=== PATIENT | male | born 1950 | race Caucasian/White ===

== ENCOUNTER 2018-03-07 11:56 | Day surgery (SDC) | payer OTHER ==
[2018-03-02 15:18] VITALS: BMI 26.6
[~2018-03-07 11:56] MED LIST: LACTATED RINGERS 1,000 ML IV SCH; LIDOCAINE 1% 20 ML VIAL (10MG/ML) FOR IV START INTRADERMA PRN
[2018-03-07 12:16] VITALS: TEMP 98.2
[2018-03-07] MEDS ORDERED: PROPOFOL 10 MG/ML 20 ML VIAL IV ONE (12:54)
[2018-03-07 13:30] VITALS: RESP 16
[2018-03-07 13:49] VITALS: BP 135/84; PULSE 61
--- NOTE | 2018-03-07 14:10 | P.PCN ---
Date of Procedure: 03/07/18 Procedure(s) Performed: Procedure: Colonoscopy and biopsy. Preoperative diagnosis: Screening for neoplasia. Postoperative diagnosis: 1. Less than ideal preparation of the bowel with no evidence of diverticulosis. 2. 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 3. Multiple biopsies obtained. 4. Splenic flexure polyp biopsied. 5. Other smaller polyps encountered in the right colon and transverse colon were not addressed because of the poor preparation. Preparation: HalfLytely prep. Sedation: Was provided by anesthesia. Brief clinical history: The patient is a 67-year-old male who is scheduled for this evaluation for screening for neoplasia. The patient had prior screening with occult stool tests for blood which were negative. He had no abdominal complaints or overt bleeding or anemia. Procedure: With the patient on his left lateral decubitus position and after informed consent and adequate sedation, the perianal area was inspected and it did not show any fissures or fistulas. There were no masses felt on digital rectal examination. The Olympus CFH 190L video colonoscope was then inserted in the rectum in the usual fashion and advanced to the cecum. The preparation was less than ideal and in some areas it was poor. In the cecum, and contiguous with the IC valve area, there was a flat spread out lesion probably representing tubulovillous adenoma but biopsies were obtained to rule out cancer. Around the splenic flexure there was a 2-3 cm polyp which I biopsied and in the transverse colon and right colon there were occasional polyps which were small to medium in size that I did not address today because of the poor preparation in those areas. I retroflexed the endoscope in the rectum before the endoscope was withdrawn. The patient tolerated the procedure well. Plan: I summarized the findings to the patient. I will await biopsy results and make additional recommendations. I will keep you updated on his progress.
== END 2018-03-07 14:04 | disposition home or self-care (01) ==
LOC: ORWHC2ENDO 11:56
DX: Z12.11 Encounter for screening for malignant neoplasm of colon (principal); D12.3 Benign neoplasm of transverse colon; D12.0 Benign neoplasm of cecum; K63.5 Polyp of colon; Z88.2 Allergy status to sulfonamides; Z72.0 Tobacco use
CPT/HCPCS: 88305; 45380; J2704

== ENCOUNTER 2022-04-09 12:39 | Day surgery (SDC) | payer OTHER ==
[2022-04-07 10:34] VITALS: BMI 25.8
[~2022-04-09 12:39] MED LIST changes: -LIDOCAINE 1% 20 ML VIAL (10MG/ML) FOR IV START INTRADERMA PRN
[2022-04-09 13:59] VITALS: RESP 16; TEMP 97.7
[2022-04-09] MEDS ORDERED: PROPOFOL 10 MG/ML 20 ML VIAL IV ONE (15:38)
--- NOTE | 2022-04-09 16:02 | P.PCN ---
Date of Procedure: 04/09/22 Procedure(s) Performed: BRIEF HISTORY: Patient is a 71-year-old pleasant male scheduled for an elective colonoscopy as a part of evaluation of prior history of colon polyps. His last colonoscopy was done by Dr. Magallanes in 2018 and was noted to have flat polyp in the cecum and biopsies revealed tubular villous adenoma. PROCEDURE PERFORMED: Colonoscopy with biopsy, snare polypectomy, tattooing with Julita ink. PREOPERATIVE DIAGNOSIS: History of colon polyps. IV sedation per Anesthesia. PROCEDURE: After informed consent was obtained, the patient, was brought into the endoscopy unit. IV sedation was administered by Anesthesia under continuous monitoring. Digital rectal examination was normal. Initially the Olympus CF-160 flexible video colonoscope was then inserted in the rectum, gradually advanced into the cecum without any difficulty. Careful examination was performed as the scope was gradually being withdrawn. Ileocecal valve and the appendiceal orifice were visualized and appeared normal. Prep was excellent. Mucosa of the cecum, up in normal. On the ileocecal valve extending into part of the cecum there was a 3-4 cm broad-based polyp that was not removed . In the hepatic flexure there was a circumferential ulcerated mass identified and multiple biopsies were done from this area followed by tattooing with Julita ink.. In the transverse colon there were 2 polyps measuring 5 mm and 1 cm in size removed by snare polypectomy. In the descending colon there was a 2 cm polyp removed by snare polypectomy. In the sigmoid colon there was a 1 cm polyp removed by snare polypectomy. Moderate sigmoid diverticulosis seen. The rectum appeared normal. Retroflexion was performed in the rectum and no lesions were seen. The patient tolerated the procedure well. IMPRESSION: Circumferential ulcerated hepatic flexure polyp status post multiple biopsies followed by Large 3-4 cm broad-based cecal polyp involving the ileocecal valve which was not removed 1 cm 2 transverse colon polyp status post polypectomy 2 cm descending colon polyp status post polypectomy 1 cm sigmoid colon polyp status post polypectomy Scattered left-sided diverticulosis RECOMMENDATIONS: Findings of this examination were discussed with the patient as well as his family. He was advised to follow with the biopsy results. He'll be scheduled for a CT of the abdomen and pelvis and he'll be seen in office in one week..
[2022-04-09 16:23] VITALS: BP 156/85; PULSE 70
== END 2022-04-09 16:39 | disposition home or self-care (01) ==
LOC: ORWHC2ENDO 12:39
PROVIDERS: ATTEND Internal Medicine Gastroenterology
DX: Z12.11 Encounter for screening for malignant neoplasm of colon (principal); D12.4 Benign neoplasm of descending colon; D12.3 Benign neoplasm of transverse colon; K57.30 Diverticulosis of large intestine without perforation or abscess without bleeding; I10 Essential (primary) hypertension; F17.200 Nicotine dependence, unspecified, uncomplicated; F41.8 Other specified anxiety disorders; M19.90 Unspecified osteoarthritis, unspecified site; Z88.2 Allergy status to sulfonamides; Z79.899 Other long term (current) drug therapy; Z90.89 Acquired absence of other organs; Z98.890 Other specified postprocedural states; Z86.010 Personal history of colon polyps
CPT/HCPCS: 45385; 45380; 45381; 88305; J2704

== ENCOUNTER → 2022-04-13 | Outpatient (CLI) | payer OTHER ==
[2022-04-13 17:29] LABS: African American GFR (CKD) >90 (>60 ml/min/1.73 sqM); Blood Urea Nitrogen 11 mg/dL (9-20); Non-African American GFR(CKD) >90 (>60 ml/min/1.73 sqM)
--- NOTE | 2022-04-13 19:20 | CT ---
EXAMINATION TYPE: CT abdomen pelvis w con CT DLP: 578 mGycm, Automated exposure control for dose reduction was used. DATE OF EXAM: 04/13/2022 6:45 PM COMPARISON: None CLINICAL INDICATION:Male, 71 years old with history of C18.9; new dx of colon ca TECHNIQUE: Axial CT of the abdomen and pelvis. Sagittal and coronal reformats were created on a [employer] workstation. Contrast used:100 mL of Isovue 300 with IV Contrast, Oral contrast used: with Oral Contrast FINDINGS: LOWER CHEST: Unremarkable ABDOMEN LIVER: Scattered subcentimeter low density areas are seen within the dome of the liver example includ es series 3 image 12 and, image 13. GALLBLADDER AND BILE DUCTS: Unremarkable. PANCREAS: Unremarkable. SPLEEN: Unremarkable. ADRENAL GLANDS: Unremarkable. KIDNEYS AND URETERS: No evidence of hydronephrosis or renal calculus. The ureters are unremarkable. PELVIS BLADDER: Unremarkable REPRODUCTIVE: Prostate is enlarged in size measuring 5.4 cm in transverse dimension. ABDOMEN & PELVIS STOMACH AND BOWEL: No evidence of bowel obstruction. There is circumferential wall thickening of the ascending colon measuring up to 13 mm with apple core lesion. There is mild fatty changes around the wall thickening which could represent infiltration. No enlarged lymph nodes within the visualized. Sc attered clonic diverticula most pronounced in the sigmoid colon. PERITONEUM/RETROPERITONEUM: No evidence of pneumoperitoneum or free fluid. . VASCULATURE: No evidence of aortic aneurysm. , This course of the arterial vasculature. MUSCULOSKELETAL: No acute osseous abnormalities LYMPH NODES: No gross evidence for lymphadenopathy. SOFT TISSUE/ABDOMINAL WALL: Unremarkable IMPRESSION: 1. Ascending colonic upper core lesion consistent with malignancy prior with history. No adjacent en larged lymph nodes, however there is some ill-defined fat stranding around this area/malignancy which could represent microscopic infiltration into the surrounding fat. 2. Scattered low-density areas within the liver could relate to cysts however malignancy is not enti rely excluded. Correlation with prior CT imaging would be of benefit for chronicity of the hepatic le sions. 3. Prostatomegaly correlate with serum PSA. 4. Colonic diverticulosis.
== END | disposition home or self-care (01) ==
LOC: RADCTMAIN 16:25
PROVIDERS: ATTEND Internal Medicine Gastroenterology
DX: C18.2 Malignant neoplasm of ascending colon (principal); N40.0 Benign prostatic hyperplasia without lower urinary tract symptoms; K57.30 Diverticulosis of large intestine without perforation or abscess without bleeding; K76.89 Other specified diseases of liver
CPT/HCPCS: 82565; 84520; 74177; 36415; Q9967

== ENCOUNTER → 2022-07-07 | Outpatient (CLI) | payer OTHER ==
[2022-07-07 14:29] LABS: African American GFR (CKD) >90 (>60 ml/min/1.73 sqM); Blood Urea Nitrogen 12 mg/dL (9-20); Non-African American GFR(CKD) >90 (>60 ml/min/1.73 sqM)
--- NOTE | 2022-07-07 15:13 | CT ---
EXAMINATION TYPE: CT chest w con CT DLP: 265.8 mGycm, Automated exposure control for dose reduction was used. DATE OF EXAM: 07/07/2022 2:45 PM COMPARISON: MR liver 05/10/2022, 05/07/2022, CT abdomen pelvis 04/13/2022. 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 TECHNIQUE: Multiple axial images were obtained through the chest following the administration of 100 cc of Isovue 300. FINDINGS: LUNGS/ PLEURA: Mild paraseptal and centrilobular emphysematous changes. No pleural effusion, pneumoth orax, focal consolidation. No suspicious nodules or mass. AIRWAY: Patent and unremarkable.. HEART: Size within normal limits. No pericardial effusion. Mild coronary artery calcifications. MEDIASTINUM: No evidence of adenopathy. VASCULATURE: No aortic aneurysm. Mild vascular calcification of the aorta. Reflux of contrast in the IVC suggesting right heart dysfunction. MUSCULOSKELETAL: Mild disc degeneration changes are present throughout the thoracolumbar spine. No ag gressive osseous lesion. No acute osseous abnormality. SOFT TISSUES/LYMPH NODES: Bilateral gynecomastia. LOWER NECK: No significant findings. UPPER ABDOMEN: The previously seen scattered subcentimeter hypodense regions within the liver are bet ter appreciated on prior CT. IMPRESSION: 1. No acute thoracic process or evidence for metastatic disease within the chest. 2. Mild COPD changes.
== END | disposition home or self-care (01) ==
LOC: RADCTMAIN 13:47
PROVIDERS: ATTEND Internal Medicine
DX: Z03.89 Encounter for observation for other suspected diseases and conditions ruled out (principal); C18.3 Malignant neoplasm of hepatic flexure; J44.9 Chronic obstructive pulmonary disease, unspecified
CPT/HCPCS: 82565; 84520; 71260; 36415; Q9967

== ENCOUNTER 2022-07-15 11:31 | Day surgery (SDC) | payer OTHER ==
[~2022-07-15 11:31] MED LIST changes: +ACETAMINOPHEN TAB 500 MG TAB PO PRN; +HEPARIN SODIUM,PORCINE/PF 5,000 UNIT/0.5 ML SYRINGE SQ PRN; +Pre Op ABX Message 1 EACH MISC MISCELLANE ONE
[2022-07-15] MEDS ORDERED: ONDANSETRON 4 MG/2 ML VIAL ONE (12:20)
[2022-07-15] MEDS ORDERED: DEXAMETHASONE SOD PHOSPHATE 4 MG/ML 1 ML VIAL IVP ONE (12:22)
[2022-07-15] MEDS ORDERED: ONDANSETRON 4 MG/2 ML VIAL IVP ONE (12:22)
[2022-07-15] MEDS ORDERED: GLYCOPYRROLATE 0.2 MG/ML 2 ML VIAL ONE (13:43)
[2022-07-15] MEDS ORDERED: LIDOCAINE 2% INJ 20 MG/ML (2 ML VIAL) ONE (13:43)
[2022-07-15] MEDS ORDERED: fentaNYL (PF) 50 MCG/ML 2 ML AMP ONE (13:43)
[2022-07-15] MEDS ORDERED: PROPOFOL 10 MG/ML 20 ML VIAL IV ONE (13:43)
[2022-07-15] MEDS ORDERED: MIDAZOLAM 2 MG/2 ML VIAL ONE (13:43)
[2022-07-15] MEDS ORDERED: ePHEDrine 50 MG/ML 1 ML VIAL ONE (13:43)
[2022-07-15] MEDS ORDERED: HEPARIN SODIUM,PORCINE 100 UNIT/ML 5 ML VIAL IV ONE ×2 (14:12)
[2022-07-15] MEDS ORDERED: SODIUM CHLORIDE 0.9% 50 ML with ceFAZolin 2,000 MG IV ONE ×2 (14:13)
[2022-07-15] MEDS ORDERED: LIDOCAINE (PF) 10 MG/ML 2 ML VIAL SQ ONE ×2 (14:13)
[2022-07-15] MEDS ORDERED: LACTATED RINGERS 1,000 ML IV ONE (14:21)
[2022-07-15 14:45] VITALS: RESP 16; TEMP 97
[2022-07-15] MEDS ORDERED: NALOXONE 0.4 MG/ML 1 ML VIAL IV PRN (14:48)
[2022-07-15] MEDS ORDERED: HYDROcodone/APAP 5-325MG 1 EACH TAB PO PRN (14:48)
--- NOTE | 2022-07-15 14:52 | FL ---
EXAMINATION TYPE: FL guided central line placemt HISTORY: Fluoroscopy time Impression: 1. Fluoroscopy support provided to the referring physician. DAP 54.37cGy cm. CY
[2022-07-15] MEDS ORDERED: hydrALAZINE HCL 20 MG/ML 1 ML VIAL IVP ONE (15:24)
--- NOTE | 2022-07-15 15:26 | P.OP ---
Date of Procedure: 07/15/22 Procedure(s) Performed: PREOPERATIVE DIAGNOSIS: Colon cancer POSTOPERATIVE DIAGNOSIS: Same PROCEDURE: Port-A-Cath placement with fluoroscopic and ultrasound guidance SURGEON: Lakshmi EBL: Minimal ANESTHESIA: Sedation COMPLICATIONS: None OPERATIVE PROCEDURE: Patient was brought and placed on the operative table in the supine position. The patient was sedated per anesthesia that time. The chest and neck were prepped and draped in usual sterile fashion. The ultrasound probe was used to identify the location of the right internal jugular vein. The skin was localized with lidocaine. The Seldinger needle was advanced into the IJ under ultrasound guidance. The wire was advanced through the needle under fluoroscopic guidance into the superior vena cava. A port pocket was created in the right infraclavicular location. The catheter was tunneled from the wire entrance site to the port pocket. The port was then connected to the catheter. The dilator introducer was threaded over the guidewire. The guidewire and dilator were then removed. The catheter was advanced through the introducer and introducer was then removed. The tip was seen to be in the right atrial junction via fluoroscopy. A picture of the radiograph showing the tip at the radial digital junction was taken. Port was flushed with both saline and a Hep- Lock solution. There was good flow both in and out of the port. The port was sutured in underlying tissues using 3-0 silk sutures. The subcutaneous tissues were reapproximated using 3-0 Vicryl sutures and the skin at both locations using 4-0 Monocryl sutures. Skin glue and sterile dressings then applied. DISPOSITION: Stable to recovery room
--- NOTE | 2022-07-15 15:35 | XR ---
EXAMINATION TYPE: XR chest 1V portable DATE OF EXAM: 07/15/2022 Comparison: Correlation CT 07/07/2022 Clinical History: 71-year-old male Mediport insertion Findings: Heart normal size. Right anterior chest wall injection port. Catheter tip at the mid SVC. Prominent b carson hyperostosis at the right costovertebral joint of the sixth rib causing a lower right paratrachea l density. No appreciable pneumothorax. No consolidation or pleural effusion. Impression: COPD. Right anterior chest wall injection port with catheter tip at the mid SVC. No acute process see n.
[2022-07-15 16:47] VITALS: BP 192/78; PULSE 90
== END 2022-07-15 16:50 | disposition home or self-care (01) ==
LOC: OR 11:31
PROVIDERS: ATTEND Surgery
DX: C18.9 Malignant neoplasm of colon, unspecified (principal); F17.210 Nicotine dependence, cigarettes, uncomplicated; I10 Essential (primary) hypertension; F41.9 Anxiety disorder, unspecified; F32.A Depression, unspecified; Z88.5 Allergy status to narcotic agent; Z79.899 Other long term (current) drug therapy
CPT/HCPCS: 77001; 71045; 36561; C1788; J2250; J0360; J2001 ×2; J1642; J1100; J2405; J0690; J3010; J2704; J1644

== ENCOUNTER → 2023-02-11 | Outpatient (CLI) | payer OTHER ==
[2023-02-11 10:27] LABS: African American GFR (CKD) >90 (>60 ml/min/1.73 sqM); Blood Urea Nitrogen 10 mg/dL (9-20); Non-African American GFR(CKD) >90 (>60 ml/min/1.73 sqM)
--- NOTE | 2023-02-11 13:18 | CT ---
EXAMINATION TYPE: CT ChestAbdPelvis w con DATE OF EXAM: 02/11/2023 COMPARISON: Chest 07/07/2022 and 04/13/2022 abdomen and pelvis HISTORY: 72-year-old male C18.3 Carcinoma of colon, hepatic flexure cancer. TECHNIQUE: Contiguous axial scanning of the chest, abdomen, and pelvis performed with IV Contrast, pa tient injected with 100 mL of Isovue 300. Delayed images through the kidneys were obtained. Coronal/s agittal reconstructions performed. CT DLP: 788.60 mGycm Automated exposure control for dose reduction was used. FINDINGS: CHEST: Heart is normal size without pericardial effusion. Scattered three-vessel coronary artery calcificati ons are present. Aorta normal caliber with a bovine configuration to the aortic arch and scattered mild atheroscleroti c calcifications. Borderline caliber to the main right and left pulmonary arteries up to 2.6 cm may reflect underlying pulmonary hypertension. No thoracic lymphadenopathy by CT size criteria. Right anterior chest wall injection port with cathet er tip at the mid SVC. Mild bilateral gynecomastia. There is mild to moderate emphysematous change. Mild diffuse bronchial wall thickening. No consolidat ion or pleural effusion. Trace biapical pleural parenchymal scarring. ABDOMEN: Scattered punctate hepatic cysts redemonstrated. No suspicious enhancing hepatic lesion clearly ident ified. No biliary ductal dilatation. Portal venous system is patent. Gallbladder, adrenal glands, kidneys, spleen, and pancreas within normal limits. Moderate atherosclerotic calcifications infrarenal abdominal aorta and iliac arteries. No dilated small bowel, free fluid, or free air. No mesenteric or retroperitoneal lymphadenopathy. Postsurgical change of partial right hemicolectomy with ileocolonic anastomosis at the hepatic flexur e of the colon. Left-sided colonic diverticulosis, extensive in the sigmoid colon. No pericolonic inf lammatory change. PELVIS: Mild circumferential bladder wall thickening. Prostate gland enlargement 6.2 cm wide. No abnormal flu id collection the pelvis or pelvic lymphadenopathy. BONES: Mild degenerative change at the hips. Moderate degenerative disc disease L5-S1 and L2-L3. Patient wit hin the lower thoracic spine. No osseous destructive process seen. IMPRESSION: 1. STATUS POST PARTIAL RIGHT HEMICOLECTOMY. NO EVIDENCE FOR RESIDUAL OR RECURRENT/METASTATIC DISEASE. 2. REDEMONSTRATED A FEW PUNCTATE HEPATIC HYPODENSITIES/CYSTS. 3. LEFT-SIDED COLONIC DIVERTICULOSIS, EXTENSIVE IN THE SIGMOID COLON. 4. COPD WITH MILD TO MODERATE EMPHYSEMA AND POSSIBLE PULMONARY ARTERIAL HYPERTENSION. 5. PROSTATOMEGALY AT 6.2 CM WIDE.
== END | disposition home or self-care (01) ==
LOC: RADCTMAIN 09:10
PROVIDERS: ATTEND Internal Medicine
DX: C18.3 Malignant neoplasm of hepatic flexure (principal); I10 Essential (primary) hypertension; M12.9 Arthropathy, unspecified; K57.30 Diverticulosis of large intestine without perforation or abscess without bleeding; N40.0 Benign prostatic hyperplasia without lower urinary tract symptoms; J43.9 Emphysema, unspecified; J44.9 Chronic obstructive pulmonary disease, unspecified; Z98.890 Other specified postprocedural states
CPT/HCPCS: 82565; 84520; 71260; 74177; 36415; Q9967

== ENCOUNTER 2023-06-17 10:39 | Day surgery (SDC) | payer OTHER ==
[2023-06-17] MEDS: LACTATED RINGERS 1,000 ML IV SCH (12:28)
[2023-06-17 12:53] VITALS: TEMP 98.9
[2023-06-17] MEDS ORDERED: PROPOFOL 10 MG/ML 20 ML VIAL IV ONE (14:19)
--- NOTE | 2023-06-17 14:36 | P.PCN ---
Date of Procedure: 06/17/23 Procedure(s) Performed: BRIEF HISTORY: Patient is a [72-year-old pleasant white male scheduled for an elective colonoscopy as a part of surveillance of prior history of colon cancer diagnosed in March 2022. He was noted to have a hepatic flexure adenocarcinoma for which she underwent right hemicolectomy. He is scheduled for a surveillance colonoscopy today. PROCEDURE PERFORMED: Colonoscopy with biopsy. PREOPERATIVE DIAGNOSIS: History of colon cancer diagnosed in March 2022 status post right hemicolectomy. IV sedation per Anesthesia. PROCEDURE: After informed consent was obtained, the patient, was brought into the endoscopy unit. IV sedation was administered by Anesthesia under continuous monitoring. Digital rectal examination was normal. Initially the Olympus CF-160 flexible video colonoscope was then inserted in the rectum, gradually advanced into the right colon where the ileocolonic anastomosis was visualized and appeared normal. Mucosa of the, transverse colon, descending colon, sigmoid colon, and rectum appeared normal. in the mid rectum there was a former limited polyp that was removed by cold biopsy. Moderate sigmoid diverticula seen. Retroflexion was performed in the rectum and no lesions were seen. The patient tolerated the procedure well. IMPRESSION: 4 mm proximal rectal polyp status post cold biopsy Moderate sigmoid diverticulosis Normal right-sided ileocolic anastomosis RECOMMENDATIONS: Findings of this examination were discussed with the patient as well as his family. He was advised to follow with the biopsy results and have a repeat surveillance colonoscopy in 3 years..
[2023-06-17] MEDS: hydrALAZINE HCL 20 MG/ML 1 ML VIAL ONE (15:14)
[2023-06-17 15:19] VITALS: RESP 16
[2023-06-17 16:29] VITALS: BP 185/75; PULSE 73
== END 2023-06-17 16:12 | disposition home or self-care (01) ==
LOC: ORWHC2ENDO 10:39
PROVIDERS: ATTEND Internal Medicine Gastroenterology
DX: Z12.11 Encounter for screening for malignant neoplasm of colon (principal); I10 Essential (primary) hypertension; K57.30 Diverticulosis of large intestine without perforation or abscess without bleeding; F41.9 Anxiety disorder, unspecified; F32.A Depression, unspecified; Z85.038 Personal history of other malignant neoplasm of large intestine; Z90.49 Acquired absence of other specified parts of digestive tract; Z79.899 Other long term (current) drug therapy; Z88.2 Allergy status to sulfonamides; Z79.85 Long-term (current) use of injectable non-insulin antidiabetic drugs
CPT/HCPCS: 45380; J0360; J2704; 88305

== ENCOUNTER → 2023-12-16 | Outpatient (CLI) | payer OTHER ==
[2023-12-16 13:54] LABS: African American GFR (CKD) >90 (>60 ml/min/1.73 sqM); Blood Urea Nitrogen 14 mg/dL (9-20); Non-African American GFR(CKD) 87 (>60 ml/min/1.73 sqM)
--- NOTE | 2023-12-16 15:27 | CT ---
EXAMINATION TYPE: CT ChestAbdPelvis w con DATE OF EXAM: 12/16/2023 COMPARISON: 02/11/2023 HISTORY: Malignant neoplasm of hepatic flexure. CT DLP: 1557 mGycm Automated exposure control for dose reduction was used. CONTRAST: CT scan of the chest, abdomen and pelvis is performed with Oral Contrast and with IV Contrast, patien t injected with 100ml mL of Isovue 300. FINDINGS: CT chest: There are mild emphysematous changes. There is no suspicious lung mass or nodule. There is no abnormal airspace/consolidative density or abnormal interstitial density. There is no pleural effusion, pleural thickening or pneumothorax. The great vessels and chest are normal there is no mediastinal, hilar or axillary adenopathy. No focal osseous lesions are seen. CT abdomen and pelvis: Gallbladder is normal without distention, pericholecystic fluid, wall thickening or gallstone. There is no biliary ductal dilatation. There are multiple stable tiny hypodensities scattered throughout the liver too small to characterize with certainty. There is no mass the pancreas, spleen or adrenal glands. There is no solid renal mass or hydronephrosis. There is no retroperitoneal adenopathy or hemorrhage in the caliber of the abdominal aorta is normal. The bowel loops are normal in caliber and there is no dilatation or obstruction. There is a right hem icolectomy. Anastomotic sutures are seen within the hepatic flexure. There is no recurrent mass. No i nflammatory changes identified in the bowel wall and mesentery. There is no free intracranial air or fluid. There is no pelvic mass or adenopathy. There is no free fluid within the pelvis. There is stable pros tatic marked prostatic enlargement No focal osseous lesions are seen. Soft tissue the abdomen and pelvis are normal. IMPRESSION: 1. Postsurgical changes of right hemicolectomy with no recurrent neoplasm or metastatic disease withi n the chest, abdomen or pelvis. 2. Multiple tiny hypodensities within the liver too small to characterize with certainty but unchange d compared to the study of 02/11/2023. 3. Marked prostatic hypertrophy [facility], , 12/16/2023 3:25 PM
== END | disposition home or self-care (01) ==
LOC: RADCTMAIN 13:06
PROVIDERS: ATTEND Internal Medicine
DX: C18.3 Malignant neoplasm of hepatic flexure
CPT/HCPCS: 36415; 71260; 74177; 82565; 84520

== ENCOUNTER → 2024-04-20 | Outpatient (CLI) | payer OTHER ==
[2024-04-20 13:49] LABS: African American GFR (CKD) >90 (>60 ml/min/1.73 sqM); Blood Urea Nitrogen 16 mg/dL (9-20); Non-African American GFR(CKD) 87 (>60 ml/min/1.73 sqM)
--- NOTE | 2024-04-20 14:46 | CT ---
EXAMINATION TYPE: CT ChestAbdPelvis w con DATE OF EXAM: 04/20/2024 2:36 PM COMPARISON: None. CLINICAL INDICATION: Male, 73 years old with history of C18.3 COLON CANCER, Colon ca TECHNIQUE: CT ChestAbdPelvis w con , with sagittal coronal reformats. If MIP/3-D images were created, there are created on a separate workstation. Contrast used:100 mL of Isovue 300 with IV Contrast, (none if empty) Oral contrast used: without Oral Contrast (none if empty) CT DLP: 589.60 mGycm, Automated exposure control for dose reduction was used. FINDINGS: CT CHEST: Portion of the thyroid visualized is normal. No suspicious lung nodules or focal infiltrates are present. No enlarged mediastinal or hilar adenopathy is evident. The ascending aorta diameter at the level of the main pulmonary artery is 3.3 cm. The main pulmonary artery diameter at the bifurcation is 2.[address] ABDOMEN: Liver: Normal Spleen: Normal Pancreas: Normal Adrenal glands: The adrenal glands are normal. Gallbladder: Normal Kidneys: No masses are evident. No hydronephrosis is present. No cysts are present. Delayed images were obtained through the kidneys, which remain unremarkable. Aorta: Vascular calcification is within the aorta. Inferior vena cava: Normal. CT PELVIS: There is been resection of the ascending colon. Anastomosis appears normal. Loops of bowel within the abdomen and pelvis are normal. Diverticulosis without acute diverticulitis of the sigmoid colon is present. There are loops of bowel which are incompletely distended or lack oral contrast limiting t heir evaluation. Appendix: Absent Urinary bladder: Normal. Genitourinary structures: Prostate is prominent. Some prostate calcifications present. Osseous structures: No suspicious lytic or sclerotic lesions. IMPRESSION: 1. No suspicious changes to suggest recurrent or metastatic colon cancer. 2. Diverticulosis without acute diverticulitis sigmoid colon [facility], , 04/20/2024 2:44 PM
== END | disposition home or self-care (01) ==
LOC: RADCTMAIN 13:11
PROVIDERS: ATTEND Internal Medicine
DX: C18.3 Malignant neoplasm of hepatic flexure (principal); K57.30 Diverticulosis of large intestine without perforation or abscess without bleeding
CPT/HCPCS: 82565; 84520; 71260; 74177; 36415; Q9967

== ENCOUNTER 2024-10-15 08:46 | Emergency (ER) | payer OTHER ==
[2024-10-15 09:06] VITALS: TEMP 98
--- NOTE | 2024-10-15 09:34 | XR ---
EXAMINATION TYPE: XR chest 1V, XR shoulder complete LT DATE OF EXAM: 10/15/2024 9:27 AM COMPARISON: Chest radiographs from 07/15/2022 TECHNIQUE: XR chest 1V, XR shoulder complete LT Portable AP radiograph of the chest. The left shoulde r was examined in AP, internally rotated and scapular Y projections. CLINICAL INDICATION:Male, 74 years old with history of fall, pain; FINDINGS: Lungs/Pleura: There is no evidence of pleural effusion, focal consolidation, or pneumothorax. Pulmonary vascularity: Unremarkable. Heart/mediastinum: Cardiomediastinal silhouette is unremarkable. Atherosclerotic calcifications are seen in the aorta. Musculoskeletal: No acute fracture. AC joint widening with with superior displacement of the distal c lavicle. No dislocation of the left shoulder. No soft tissue swelling. Lateral right upper thoracic s pine osteophyte. IMPRESSION: 1. No acute cardiopulmonary disease/process. 2. Acute left type III AC joint injury. [facility], , 10/15/2024 9:31 AM
[2024-10-15] MEDS: DIPH,PERTUS(ACELL)TETVAC-LF 0.5 ML VIAL IM ONE (10:00)
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
[2024-10-15] MEDS: ACET/COD 300 MG/30 MG STARTER PACK TAB BTL PO STA (11:07)
[2024-10-15 11:15] VITALS: BP 150/71; PULSE 63; RESP 18
== END 2024-10-15 11:17 | disposition home or self-care (01) ==
LOC: EC 08:46
DX: S43.102A Unspecified dislocation of left acromioclavicular joint, initial encounter (principal); S00.91XA Abrasion of unspecified part of head, initial encounter; Z87.891 Personal history of nicotine dependence; Z88.2 Allergy status to sulfonamides; Z23 Encounter for immunization; W01.0XXA Fall on same level from slipping, tripping and stumbling without subsequent striking against object, initial encounter
CPT/HCPCS: 70450; 71045; 72125; 90471; 90715; 99283